=== PATIENT | female | born 1985 | race Hispanic/Latino ===

== ENCOUNTER 2017-04-20 09:00 | Emergency (ER) | payer MEDICAID ==
[2017-04-20 09:46] VITALS: BP 104/71; PULSE 83; RESP 20; TEMP 98; O2SAT 100
--- NOTE | 2017-04-20 09:55 | C.PDOC ---
History Of Present Illness 32 year old female presents to the ER with a complaint of decreased hearing from the left ear for approximately 1 week. Patient reports having similar symptoms in the past to the right ear because of eat wax. Patient has been using peroxide to remove the wax from the left ear with no improvement. Denies ear pain, fever, sore throat, or runny nose. Time Seen by Provider: 04/20/17 09:28 Chief Complaint (Nursing): ENT Problem History Per: Patient History/Exam Limitations: None Onset/Duration Of Symptoms: Days Current Symptoms Are (Timing): Still Present Quality (Ear): Other (Decreased hearing left ear) Symptoms Have Been: Continuous Past Medical History Reviewed: Historical Data, Nursing Documentation, Vital Signs Vital Signs: Last Vital Signs Temp 98 F 04/20/17 09:39 Pulse 83 04/20/17 09:39 Resp 20 04/20/17 09:39 BP 104/71 04/20/17 09:39 Pulse Ox 100 04/20/17 09:55 - Medical History PMH: Anemia Surgical History: Cholecystectomy - [facility] Procedures TETANUS TOXOID ADMINIST (07/26/12) Family History: States: Unknown Family Hx - Social History Hx Tobacco Use: No Hx Alcohol Use: No Hx Substance Use: No - Immunization History Hx Tetanus Toxoid Vaccination: No Hx Influenza Vaccination: No Hx Pneumococcal Vaccination: No Review Of Systems Except As Marked, All Systems Reviewed And Found Negative. ENT: Positive for: Other (Decreased hearing left ear) Physical Exam - Physical Exam Appears: Non-toxic, No Acute Distress Skin: Normal Color, Warm, Dry Head: Atraumatic, Normacephalic Eye(s): bilateral: Normal Inspection Ear(s): Bilateral: Other (Cerumen in canal but not impacted, no erythema, TM normal) Nose: Normal Oral Mucosa: Moist Throat: Normal, No Erythema, No Exudate Neck: Normal, Supple Chest: Symmetrical, No Tenderness Cardiovascular: Rhythm Regular Respiratory: Normal Breath Sounds, No Rales, No Rhonchi, No Wheezing Neurological/Psych: Oriented x3, Normal Speech ED Course And Treatment O2 Sat by Pulse Oximetry: 100 (Room air) Pulse Ox Interpretation: Normal Progress Note: Patient given Rx for debrox ear drops and advised to follow up with ENT for further evaluation. Disposition Counseled Patient/Family Regarding: Diagnosis, Need For Followup, Rx Given - Disposition Referrals: Ramirez Brown MD [Staff Provider] - [facility] [Outside] Disposition: HOME/ ROUTINE Disposition Time: 10:00 Condition: STABLE Additional Instructions: USE MEDICATIONS DIRECTED FOLLOW UP WITH ENT WITHIN 1 WEEK RETURN TO ER IF SYMPTOMS WORSEN Prescriptions: Carbamide Peroxide [Debrox 15 Ml] 5 drop OT BID #1 bottle Instructions: Ear Wax Impaction Forms: [facility] (Greenlandic) Print Language: NORWEGIAN - Clinical Impression Clinical Impression: Left ear impacted cerumen - Scribe Statement The provider has reviewed the documentation as recorded by the Scribasif Garcia All medical record entries made by the Elpidioibasif were at my direction and personally dictated by me. I have reviewed the chart and agree that the record accurately reflects my personal performance of the history, physical exam, medical decision making, and the department course for this patient. I have also personally directed, reviewed, and agree with the discharge instructions and disposition.
== END 2017-04-20 10:07 | disposition home or self-care (01) ==
LOC: C.ER 09:00
DX: H61.22 Impacted cerumen, left ear (principal)

== ENCOUNTER 2017-08-27 07:11 | Inpatient (IN) | payer OTHER ==
[2017-08-27] MEDS ORDERED: Lactated Ringer's 1,000 ML IV ONE (08:03)
[2017-08-27] MEDS ORDERED: ceFAZolin 2 GM in Sodium Chloride 0.9% 100 ML IVPB ONE (08:03)
[2017-08-27] MEDS ORDERED: Morphine 1 mg/ml preservative-free Inj(Duramorph) ONE (08:11)
[2017-08-27 08:30] LABS: BASO # 0.1 K/uL (0.0-0.2); BASO % 0.6 % (0.0-2.0); EOS # 0.1 K/uL (0.0-0.7); EOS % 0.7 % (0.0-4.0); HEMOGLOBIN 12.6 g/dL (11.0-16.0); LYMPH # 2.8 K/uL (1.0-4.3); MEAN CELL VOLUME 87.6 fL (81.0-99.0); MEAN CORPUSCULAR HEMOGLOBIN 31.1 pg (27.0-31.0); MEAN CORPUSCULAR HGB CONC 35.5 g/dL (33.0-37.0); MEAN PLATELET VOLUME 9.2 fL (7.2-11.7); MONO # 0.6 K/uL (0.0-0.8); MONO % 7.4 % (0.0-10.0); NEUT # 5.2 K/uL (1.8-7.0); NEUT % 59.3 % (50.0-75.0); NRBC % 0.1 % (0.0-2.0); RBC 4.07 Mil/uL (3.80-5.20); RED CELL DISTRIBUTION WIDTH 14.6 % (11.5-14.5); WHITE BLOOD COUNT 8.7 K/uL (4.8-10.8)
[2017-08-27 08:38] LABS: SQUAMOUS EPITHIAL 1 /hpf (0-5); URINE BACTERIA RARE (<OCC); URINE BILIRUBIN NEGATIVE (NEGATIVE); URINE BLOOD 2+ (NEGATIVE); URINE CLARITY Clear (Clear); URINE COLOR Yellow (YELLOW); URINE GLUCOSE (UA) NORMAL (Normal); URINE LEUKOCYTE ESTERASE NEG Leu/uL (Negative); URINE PROTEIN NEGATIVE (NEGATIVE)
[2017-08-27 08:52] LABS: BARBITURATES, UR NEGATIVE (NEGATIVE); BENZODIAZEPINES, UR NEGATIVE (NEGATIVE); OPIATES, UR NEGATIVE (NEGATIVE); PHENCYCLIDINE, UR NEGATIVE (NEGATIVE)
[2017-08-27] MEDS ORDERED: Sodium Citrate/Citric Acid 15 ml Sol ONE (09:29)
[2017-08-27] MEDS: Sodium Citrate/Citric Acid 15 ml Sol PO ONE (09:35)
[2017-08-27] MEDS ORDERED: Oxytocin 10 Units/ml Inj ONE (09:42)
--- NOTE | 2017-08-27 09:54 | OBADHP ---
Datetime: 08/27/2017 08:39 Admit Comment, IP Provider: Term Previous C/S x 3 Multiparity and requesting Permanent Sterilization Admitted for repeat and Bilateral Tubal Ligation Procedure, risks and possible complications reviewed with patient to include, but not exclusively, infection, bleedidng, injury to bladder, bowel, ureters, uterus and/or other internal organs. Pt mary alized understanding and signed the consent. The Permanent Sterilization consent was also fully revie wed and signed after understanding that this is not 100% guaranteed and aware of 3-5 women in 1000 ma y still get again. Pelvic Type - PN: Adequate Extremities - PN: Normal Abdomen - PN: Normal Back - PN: Normal Breast - PN: Normal Lungs - PN: Normal Heart - PN: Normal Thyroid - PN: Normal Neurologic - PN: Normal HEENT - PN: Normal General - PN: Normal Weight - Estimated: 3000 Presentation-Admit: Vertex FHR - Baseline A Provider: 130 Contraction Comments Provider: Ocassional Gestation - Est Wks by US: 39.0 Vital Signs Provider: Reviewed IP Chief Complaint: Scheduled Section NICHD Variability Prov Fetus A: Moderate 6-25bpm NICHD Accel Fetus A IP Provider: [id number] NICHD Decel Fetus A IP Provider: None Dilatation, Provider: 0 Genitourinary Exam: Normal DTRs - PN: Normal EGA AdmitDate IP: 38.6 IP Adm Impression: Term, intrauterine IP Admit Plan: Admit to unit; Initiate Section protocol
[2017-08-27] MEDS ORDERED: ePHEDrine 50 mg/ml Inj ONE (11:25)
--- NOTE | 2017-08-27 12:34 | OBDS ---
DELIVERY PERSONNEL Delivery Doctor: yamil Adler Nurse: Chelo Neves Trim Sawyer: Moreno Menjivar RN Anesthesiologist: malia MATERNAL INFORMATION Delivery Anesthesia: Spinal Medications in Delivery: pitocin 20 Estimated Blood Loss (ml): 800 Placenta Cultured: No Maternal Complications: None Provider Comments: 32 yo female with an IUP at 38.6 weeks and admitted for elective repeat C /S with BTL. C C/S incision was made with delivery of a viable female with Apgars of 9 _ 9, per Varsha delgadillo present at delivery. Cord pH 7.32 Venous BTL was performed with Sukumar technique and without complications. Pee portions of the tubes were sent to Pathology. EBL 600 Pt and both tolerated the procedure well and both remained in S_S condition. LABOR SUMMARY EDC: 09/04/2017 00:00 No. Babies in Womb: 1 LABOR INFORMATION Oxytocin: N/A Group B Beta Strep: Negative Antibiotics # of Doses: 1 Antibiotics Time of Last Dose: 1030 Steroids Given: None Reason Steroids Not Administered: Not Applicable MEMBRANES Membranes Rupture Method: Artificial Rupture of Membranes: 08/27/2017 10:57 Length of Rupture (hrs): 0.02 Amniotic Fluid Color: Clear Amniotic Fluid Amount: Moderate Amniotic Fluid Odor: Normal STAGES OF LABOR Stage 3 hrs: 0 Stage 3 min: 1 VAGINAL DELIVERY Episiotomy: Median Laceration Type: None CSECTION DELIVERY Primary Indication: Repeat Elective Other Primary Indication: Multyparity and requesting Sterilization Secondary Indication: N/A CSection Urgency: Elective CSection Incidence: Repeat Labor: N/A Elective: Elective CSection Incision: Lower Uterine Transverse Sterilization Procedure: Sukumar BABY A INFORMATION Delivery Date/Time: 08/27/2017 10:58 Method of Delivery: Born in Route : No : N/A Forceps: N/A Vacuum Extraction: N/A Shoulder Dystocia : No SHOULDER DYSTOCIA BABY A Infant Delivery Date/Time: 08/27/2017 10:58 PRESENTATION/POSITION BABY A Presentation: Cephalic Cephalic Presentation: Vertex Vertex Position: Left Occipital Anterior Breech Presentation: N/A PLACENTA INFORMATION BABY A Placenta Delivery Time : 08/27/2017 10:59 Placenta Method of Delivery: Expressed Placenta Status: Delivered SCORES BABY A Heart Rate 1 min: >100 bpm Resp Effort 1 min: Good Cry Reflex Irritability 1 min: Cough or Sneeze or Pulls Away Muscle Tone 1 min: Active Motion Color 1 min: Body Elsie, Extremities Blue Resuscitation Effort 1 min: Tactile Stimulation SCORE 1 MIN: 9 Heart Rate 5 min: >100 bpm Resp Effort 5 min: Good Cry Reflex Irritability 5 min: Cough or Sneeze or Pulls Away Muscle Tone 5 min: Active Motion Color 5 min: Body Elsie, Extremities Blue SCORE 5 MIN: 9 INFANT INFORMATION BABY A Gestational Age at Delivery: 39.0 Gestational Status: Term Outcome : Liveborn Condition : Stable Infant Sex: Male IDENTIFICATION/MEDS BABY A ID Band Number: [id number] ID Band Location: Left Leg Sensor Applied: Yes Sensor Number: [id number] Sensor Location : Cord Clamp WEIGHT/LENGTH BABY A Birthweight (gms): 3460 Weight (lb): 7 Infant Weight (oz): 10 Infant Length Inches: 19.25 Infant Length cms: 48.9 CORD INFORMATION BABY A No. Cord Vessels: 3 Nuchal Cord : Around Neck x1, Loose Cord Blood Taken: Yes Infant Suction: Mouth; Nose ASSESSMENT BABY A Complications: None Infant Complications Other: Blood Bank Business Manager in attendance Physical Findings at Delivery: Within Normal Limits Infant Respirations: Appears Normal Lead Housekeeper/ALS Called : No Care By: dr spears Transferred To: Remains with Mother
[2017-08-27] MEDS ORDERED: DiphenhydrAMINE 50 mg/ml Inj ONE (13:34)
[2017-08-27] MEDS: Simethicone 80 mg Chewtab PO SCH ×3 (15:04→22:04)
[2017-08-28 08:38] LABS: HEMOGLOBIN 11.5 g/dL (11.0-16.0); MEAN CELL VOLUME 87.6 fL (81.0-99.0); MEAN CORPUSCULAR HGB CONC 35.3 g/dL (33.0-37.0); RBC 3.71 Mil/uL (3.80-5.20); RED CELL DISTRIBUTION WIDTH 14.1 % (11.5-14.5); WHITE BLOOD COUNT 12.8 K/uL (4.8-10.8)
[2017-08-28] MEDS: Prenatal Multivit/Folic Acid/Iron Tab PO SCH (10:05)
[2017-08-28] MEDS: Simethicone 80 mg Chewtab PO SCH ×4 (10:05→22:53)
[2017-08-28] MEDS: Oxycodone/Acetaminophen 5/325 mg Tab PO PRN ×2 (10:06→14:55)
--- NOTE | 2017-08-28 16:10 | OBPPN ---
Datetime: 08/28/2017 15:55 PP Pain Prov: Within normal limits PP Nausea Prov: Denies PP Flatus Prov: Yes PP BM Prov: Yes PP Breasts Prov: Not Done PP Heart Prov: Normal PP Lungs Prov: Normal PP Abdomen/Uterus Prov: Normal PP Lochia Prov: Normal PP Vulva/Perineum Prov: Normal PP CVA Tenderness Prov: Not Done PP Extremities Prov: Normal PP C/S Incision Prov: Normal PP Progress Prov: Abnormal PP Comments Phys Exam Prov: Incision clean, dry and intact Fundus firm and non-tender PP Impression Prov: Normal progression; difficulties PP Plan Prov: Continue present management PP Progress Note Prov: POD # 1 S/P Repeat C/S with BTL Post-Op H_H 11.5/32.5 Difficulty and will consult Requested a circumcision and she was counseled adequately and signed the consent Stable and Satisfactory condition and recovery Continue Present Management IP PP Procedures: None Vital Signs Provider PP: Reviewed
[2017-08-28] MEDS: Naproxen 550 mg Tab PO PRN (17:47)
[2017-08-29] MEDS: Naproxen 550 mg Tab PO PRN ×2 (06:02→17:28)
[2017-08-29 08:13] VITALS: RESP 18
[2017-08-29] MEDS: Simethicone 80 mg Chewtab PO SCH ×4 (09:12→22:15)
[2017-08-29] MEDS: Prenatal Multivit/Folic Acid/Iron Tab PO SCH (09:12)
--- NOTE | 2017-08-29 13:42 | OBPPN ---
Datetime: 08/29/2017 13:19 PP Pain Prov: Within normal limits PP Nausea Prov: Denies PP Flatus Prov: Yes PP BM Prov: No PP Breasts Prov: Not Done PP Heart Prov: Normal PP Lungs Prov: Normal PP Abdomen/Uterus Prov: Normal PP Lochia Prov: Normal PP Vulva/Perineum Prov: Not Done PP CVA Tenderness Prov: Not Done PP Extremities Prov: Normal PP C/S Incision Prov: Normal PP Progress Prov: Normal PP Comments Phys Exam Prov: Fundus firm, non-tender and below umbilicus PP Impression Prov: Normal progression PP Plan Prov: Continue present management PP Progress Note Prov: POD # 2 Stable and Satisfactory condition and recovery Advance care Anticipate discharge home in AM IP PP Procedures: None Vital Signs Provider PP: Reviewed; Within Normal Limits
[2017-08-30] MEDS: Naproxen 550 mg Tab PO PRN (06:14)
[2017-08-30 08:02] VITALS: BP 107/70; PULSE 77; TEMP 97.8
--- NOTE | 2017-08-30 09:55 | OBDCSUM ---
Datetime: 08/30/2017 09:53 Discharged to, Provider: Home Follow up at, Provider: Clinic Disch Instr Activity: Normal activity; May Shower Disch Instr Diet: Regular Discharge Instructions, Provider: Specific instructions as noted Discharge Diagnosis, Provider: Term Delivered Disch Referrals: None Discharge Instruct Comment, Prov: F/U in the clinic next week or earlier as needed. Use the abdomi Disch Activity Restrictions: No exercising; No lifting; No driving; No sexual activity; Nothing in v agina - [place], tampons, douche Contraception after Delivery: Tubal Ligation
--- NOTE | 2017-08-30 09:56 | OBPPN ---
Datetime: 08/30/2017 09:49 PP Pain Prov: Within normal limits PP Nausea Prov: Denies PP Flatus Prov: Yes PP BM Prov: Yes PP Breasts Prov: Normal PP Abdomen/Uterus Prov: Normal PP Lochia Prov: Normal PP Extremities Prov: Abnormal PP C/S Incision Prov: Normal PP Progress Prov: Normal PP Comments Phys Exam Prov: ABD: Soft, NT. Uterus firm below umbilicus. Incision- Old blood. No acti ve bleeding. Ext: No calf tenderness PP Impression Prov: Normal progression PP Plan Prov: Continue present management; Discharge PP Progress Note Prov: A/P S/P C section. Doing well. Discharge instruction discussed. Pain management with Naproxen F/U in the clinic next week for wound check. IP PP Procedures: None Vital Signs Provider PP: Reviewed Vital Signs Provider Details PP: Incision- Old blood noted. No bleeding seen at this time. Extr: +1 edema B/L.
[2017-08-30] MEDS: Simethicone 80 mg Chewtab PO SCH (10:55)
[2017-08-30] MEDS: Prenatal Multivit/Folic Acid/Iron Tab PO SCH (10:56)
--- NOTE | 2017-08-30 14:12 | OP ---
PROCEDURE DATE: 08/27/2017 PREOPERATIVE DIAGNOSES: 1. Intrauterine at term. 2. Previous section x3. 3. Requesting permanent sterilization. POSTOPERATIVE DIAGNOSES: 1. Intrauterine at term. 2. Previous section x3. 3. Requesting permanent sterilization. PROCEDURES: 1. Repeat low transverse cervical section with delivery of a viable male with Apgars of 9 and 9 in 1 and 5 minutes and weight of 7 pounds 10 ounces. 2. Bilateral tubal ligation with modified Sukumar technique. SURGEON: Gita Burciaga MD FIREWORKS ASSEMBLER: Dr. Mojica. ANESTHESIA: Spinal. ANESTHESIOLOGIST: Dr. Mares. CHEESE CUTTER IN ATTENDANCE: Jeffrey Colmenares. SPECIMEN: Portions of bilateral fallopian tubes. COMPLICATIONS: None. ESTIMATED BLOOD LOSS: 600 mL. FLUIDS: Per Anesthesia. URINE OUTPUT: 150 mL. PREOP NOTE: The procedure, the risks and the possible complications were fully reviewed with the patient to include, but not exclusively, hemorrhoids, infection, injury to bowel or bladder, bilateral tubes and ovaries, internal blood vessels or any other internal organs. The patient verbalized understanding and requested to proceed and sign the consent. The nature of the permanent sterilization procedure was also fully reviewed with the patient, and she was made fully aware that this is considered a permanent procedure, not reversible, with a known failure rate of 5 or 6 women in 1000 women that may still get despite any tubal ligation procedure performed. Once again, the patient verbalized understanding, requested to proceed and signed the consent. DESCRIPTION OF PROCEDURE: The patient was taken to the operating room, and she was given a spinal form of anesthesia. She was then sterilely prepped and draped in the usual manner for the above-named procedure. The time-out was then carried out as indicated, and we initiated the procedure. After ascertaining adequate level of anesthesia, a knife was utilized to make a low transverse skin incision. Following the previous scar and utilizing the Pfannenstiel technique, the abdomen was entered. The peritoneum was identified and it was sharply entered. The bladder flap was then developed with some difficulty because of few of the adhesions, and this was placed underneath the [place] blade. The second knife was then utilized to make a low transverse uterine incision in the lower uterine segment, and this was extended bilaterally in a transverse manner with blunted scissors. The membranes were ruptured which turned up clear fluid, and the was then delivered from the KAMALA position. The bulb syringe was utilized to suction the nasal and the oropharynx upon delivery of the head, and upon completion of the delivery, which was carried out without difficulty. The cord was doubly clamped and transected, and the was passed to the magento developer in attendance for further inspection. The cord blood and the cord pH were obtained and sent. The placenta was then spontaneously delivered. The uterus was extravasated through the abdomen, the adhesions, and the endometrial cavity was cleansed with moist lap, and the uterine incision was closed utilizing 0 PDS suture in a full thickness manner with adequate closure and adequate hemostasis. At this time, we directed our attention to the tubal ligation procedure. The left fallopian tube was identified in its entirety from the cornua to the fimbriated end, and at approximately, the isthmic portion of the tube, a was made with a Vasu, and it was double sutured ligated and transected, and the portion of the tube was passed to be sent to pathology. The endosalpinx was then cauterized and hemostasis was adequate. The same procedure was then repeated on the right side after identifying the tube in its entirety. Again portion of the right fallopian tube was sent to pathology. The cul-de-sac was cleansed off blood clots, and the uterus was repositioned into the abdominal cavity. Bilateral gutters were also cleansed, and after obtaining adequate hemostasis at the fallopian tube incisions and at the uterine incision, we proceeded across the abdominal layers. The rectus muscle was reapproximated in the midline with few interrupted sutures of 0 Vicryl and incorporated the peritoneum. The fascia was closed with 0 PDS and few sutures were placed in the adipose tissue to reapproximate the edges. The skin was closed with subcutaneous sutures of Monocryl and with an adequate closure. The sterile dressing was applied and the the procedure was terminated. All instruments and sponges were counted for x3, and the patient and the both tolerated the procedure well and both left the operating room in a stable and satisfactory condition. Gita Burciaga MD
[2017-08-30 20:04] VITALS: O2SAT 99
== END 2017-08-30 12:15 | disposition home or self-care (01) | DRG 371 ==
LOC: C.4D 07:11 → C.4M 14:56
PROVIDERS: ADMIT Obstetrics & Gynecology; ATTEND Obstetrics & Gynecology
PROC: 10D00Z1 Extraction of Products of Conception, Low, Open Approach (ICD-10-PCS; principal; 2017-08-27)
PROC: 0UB70ZZ Excision of Bilateral Fallopian Tubes, Open Approach (ICD-10-PCS; 2017-08-27)
DX: O34.211 Maternal care for low transverse scar from previous cesarean delivery (principal); O69.81X0 Labor and delivery complicated by cord around neck, without compression, not applicable or unspecified; Z30.2 Encounter for sterilization; Z3A.39 39 weeks gestation of pregnancy; Z37.0 Single live birth